=== PATIENT | female | born 1980 | race Caucasian/White ===

== ENCOUNTER → 2020-01-06 | Outpatient (CLI) | LOC: RDC 12:07 | PROVIDERS: ATTEND Registered Nurse | DX: Z53.9 Procedure and treatment not carried out, unspecified reason (principal) | CPT/HCPCS: 87635; C9803 ==

== ENCOUNTER → 2020-07-11 | Outpatient (CLI) | payer SELFPAY ==
[~2020-07-11] MED LIST: COVID-19 VACCINE (PFIZER)/PF 30 MCG/0.3 ML VIAL IM ONE; EPINEPHRINE INJ/PF 1 MG/1 ML AMPULE IM PRN
== END ==
LOC: EMPHEALTH 06:57
PROVIDERS: ATTEND Internal Medicine
DX: Z23 Encounter for immunization (principal)
CPT/HCPCS: 91300

== ENCOUNTER → 2020-08-01 | Outpatient (CLI) | payer SELFPAY | LOC: EMPHEALTH 07:09 | PROVIDERS: ATTEND Internal Medicine | DX: Z23 Encounter for immunization (principal) | CPT/HCPCS: 91300 ==